=== PATIENT | male | born 1985 | race Caucasian/White ===

== ENCOUNTER 2017-10-03 19:55 | Emergency (ER) | payer OTHER ==
--- NOTE | 2017-10-03 20:10 | PDOC ---
Rapid Medical Evaluation Chief Complaint: Pain Time Seen by Provider: 10/03/17 20:02 Medical Evaluation: Allergies Allergy/AdvReac Type Severity Reaction Status Date / Time No Known Allergies Allergy Verified 10/03/17 20:05 10/03/17 20:08 Pt c/o: generalized abd pain since saturday with burning, nausea and diarrhea starting today, went to urgent care clinic and was given zofran and zantac, no improvement Pt on brief exam: vss Pt ordered for : cbc, comp, lipase, ua, mag Pt to proceed to the ED Discharge Disposition - Diagnosis Abdominal pain - Referrals - Patient Instructions - Post Discharge Activity
[2017-10-03 20:17] VITALS: BP 119/70; PULSE 70; TEMP 98; BMI 26.8
[2017-10-03 20:27] LABS: HEMATOCRIT 48.4 % (35.4-49); HEMOGLOBIN 16.6 GM/dL (11.7-16.9); MCH 32.6 pg (25.7-33.7); MCHC 34.4 g/dl (32.0-35.9); MEAN CELL VOLUME 94.7 fl (80-96); MEAN PLT VOLUME 8.5 fl (7.5-11.1); PLATELET COUNT 216 K/MM3 (134-434); RBC 5.11 M/mm3 (4.00-5.60); RDW 12.9 % (11.9-15.9); WHITE BLOOD COUNT 14.6 K/mm3 (4.0-10.0)
[2017-10-03 20:40] LABS: URINE APPEARANCE CLEAR; URINE BILIRUBIN NEGATIVE (NEGATIVE); URINE BLOOD NEGATIVE (NEGATIVE); URINE COLOR STRAW; URINE GLUCOSE (UA) NEGATIVE (NEGATIVE); URINE KETONE NEGATIVE (NEGATIVE); URINE LEUK ESTERASE NEGATIVE (NEGATIVE); URINE NITRITE NEGATIVE (NEGATIVE); URINE PROTEIN NEGATIVE (NEGATIVE); URINE UROBILINOGEN NEGATIVE mg/dL (0.2-1.0)
[2017-10-03 21:02] LABS: ALBUMIN 3.9 g/dl (3.4-5.0); ANION GAP 5 (8-16); BILIRUBIN,TOTAL 0.4 mg/dL (0.2-1.0); BLOOD UREA NITROGEN 29 mg/dL (7-18); CALCIUM 8.2 mg/dL (8.5-10.1); CHLORIDE 102 mmol/L (98-107); CO2 29 mmol/L (21-32); CREATININE 1.3 mg/dL (0.7-1.3); GLUCOSE,RANDOM 106 mg/dL (74-106); LIPASE 192 U/L (73-393); MAGNESIUM 2.2 mg/dL (1.8-2.4); POTASSIUM 4.1 mmol/L (3.5-5.1); SGOT/AST 21 U/L (15-37); SGPT/ALT 41 U/L (12-78); SODIUM 136 mmol/L (136-145); TOT PROT 7.4 g/dl (6.4-8.2)
[2017-10-03 21:03] LABS: ALK PHOS 76 U/L (45-117)
[2017-10-03 21:45] LABS: PLATELET ESTIMATE ADEQUATE
[2017-10-03] MEDS ORDERED: DICYCLOMINE HCL 20 MG TABLET PO ONE (22:16)
[2017-10-03] MEDS ORDERED: DICYCLOMINE HCL 10 MG CAPSULE ONE (22:20)
--- NOTE | 2017-10-03 22:50 | PDOC ---
History of Present Illness - General Chief Complaint: Pain Stated Complaint: STOMACH PAIN Time Seen by Provider: 10/03/17 20:02 History Source: Patient Exam Limitations: No Limitations - History of Present Illness Initial Comments: 10/03/17 22:44 Patient is a 52-year-old male with history of appendectomy, tonsillectomy, right knee arthroscopic, complaining of diarrhea 4 days. Diarrhea is watery nonbloody associated with nausea, no vomiting and generalized abdominal pain. Describes the abdominal pain as intermittent generalized and in with 10/10 at its maximum and is currently 7/10. Denies any fever, chills. There has been no sick contact or food contact. States he went to urgent care 2 days ago for the symptoms and was given ranitidine and Zofran which has not improved his condition. States he had one diarrhea episode today, but the abdominal pain has been intermittent but was concerned and so presents for evaluation. Denies fever , chills, dysuria, hematochezia. PMD: Dr. Molina PMHX: as above PsocHX: neg cig, EtOH, drugs ALL: NKDA GENERAL/CONSTITUTIONAL: [No fever or chills. No weakness. No weight change.] HEAD, EYES, EARS, NOSE AND THROAT: [No change in vision. No ear pain or discharge. No sore throat.] CARDIOVASCULAR: [No chest pain or shortness of breath.] RESPIRATORY: [No cough, wheezing, or hemoptysis.] GASTROINTESTINAL: [No nausea, vomiting, diarrhea or constipation. No rectal bleeding.] GENITOURINARY: [No dysuria, frequency, or change in urination.] MUSCULOSKELETAL: [No joint or muscle swelling or pain. No neck or back pain.] SKIN AND BREASTS: [No rash or easy bruising.] NEUROLOGIC: [No headache, vertigo, loss of consciousness, or loss of sensation.] PSYCHIATRIC: [No depression or anxiety.] ENDOCRINE: [No increased thirst. No abnormal weight change.] HEMATOLOGIC/LYMPHATIC: [No anemia, easy bleeding, or history of blood clots.] ALLERGIC/IMMUNOLOGIC: [No hives or skin allergy. No latex allergy.] GENERAL: [The patient is awake, alert, and fully oriented, in no acute distress. ] HEAD: [Normal with no signs of trauma.] EYES: [Pupils equal, round and reactive to light, extraocular movements intact, sclera anicteric, conjunctiva clear.] ENT: [Ears normal, nares patent, oropharynx clear without exudates. Moist mucous membranes.] NECK: [Normal range of motion, supple without lymphadenopathy, JVD, or masses.] LUNGS: [Breath sounds equal, clear to auscultation bilaterally. No wheezes, and no crackles.] HEART: [Regular rate and rhythm, normal S1 and S2 without murmur, rub.] ABDOMEN: [Soft, nontender, normoactive bowel sounds. No guarding, no rebound. No masses.] EXTREMITIES: [Normal range of motion, no edema. No clubbing or cyanosis. No cords, erythema, or tenderness.] NEUROLOGICAL: [Cranial nerves II through XII grossly intact. Normal speech, normal gait.] PSYCH: [Normal mood, normal affect.] SKIN: [Warm, Dry, normal turgor, no rashes or lesions noted.] Past History - Past Medical History Allergies/Adverse Reactions: Allergies Allergy/AdvReac Type Severity Reaction Status Date / Time No Known Allergies Allergy Verified 10/03/17 20:05 Home Medications: Ambulatory Orders Dicyclomine HCl [Bentyl] 10 mg PO TID #20 capsule 10/03/17 Asthma: Yes (Until age 17) COPD: No - Surgical History Appendectomy: Yes - Suicide/Smoking/Psychosocial Hx Smoking History: Never smoked Have you smoked in the past 12 months: No Information on smoking cessation initiated: No Hx Alcohol Use: No Drug/Substance Use Hx: No Substance Use Type: None *Physical Exam - Vital Signs Last Vital Signs Temp Pulse Resp BP Pulse Ox 98.0 F 70 18 119/70 96 10/03/17 20:05 10/03/17 20:05 10/03/17 20:05 10/03/17 20:05 10/03/17 20:05 ED Treatment Course - LABORATORY CBC & Chemistry Diagram: 10/03/17 20:20 10/03/17 20:20 - ADDITIONAL ORDERS Additional order review: Laboratory Results 10/03/17 10/03/17 20:25 20:20 Sodium 136 Potassium 4.1 Chloride 102 Carbon Dioxide 29 Anion Gap 5 L BUN 29 H Creatinine 1.3 Creat Clearance w eGFR > 60 Random Glucose 106 Calcium 8.2 L Magnesium 2.2 Total Bilirubin 0.4 AST 21 ALT 41 Alkaline Phosphatase 76 Total Protein 7.4 Albumin 3.9 Lipase 192 Urine Color Straw Urine Appearance Clear Urine pH 5.0 Ur Specific [place] 1.018 Urine Protein Negative Urine Glucose (UA) Negative Urine Ketones Negative Urine Blood Negative Urine Nitrite Negative Urine Bilirubin Negative Urine Urobilinogen Negative Ur Leukocyte Esterase Negative 10/03/17 20:20 RBC 5.11 MCV 94.7 MCHC 34.4 RDW 12.9 MPV 8.5 Neutrophils % No Result Required. Lymphocytes % No Result Required. - Medications Given in the ED: ED Medications Discontinued Medications Generic Name Dose Route Start Last Admin Trade Name Freq PRN Reason Stop Dose Admin Dicyclomine HCl 20 mg 10/03/17 22:16 10/03/17 22:22 Bentyl - PO 10/03/17 22:17 20 mg ONCE ONE Administration Medical Decision Making - Medical Decision Making 10/04/17 22:27 Patient is a 52-year-old male with history of appendectomy, tonsillectomy, right knee arthroscopic, complaining of auditory diarrhea 4 days consistent with gastroenteritis. Labs, Bentyl 20 mg by mouth. Discharge with GI follow-up. Labs reviewed of concern are 28 eosinophils, and an elevated WBC of 14 Case was discussed with Dr. Muñoz who states that patient can follow-up in the office on Saturday I discussed the physical exam findings, ancillary test results and final diagnoses with the patient. I answered all of the patient's questions. The patient was satisfied with the care received and felt comfortable with the discharge plan and treatment plan. The Patient agrees to follow up with the primary care physician within 24-72 hours. *DC/Admit/Observation/Transfer Diagnosis at time of Disposition: Abdominal pain Qualifiers: Abdominal location: generalized Qualified Code(s): R10.84 - Generalized abdominal pain - Discharge Dispostion Disposition: HOME Condition at time of disposition: Stable - Prescriptions Prescriptions: Dicyclomine HCl [Bentyl] 10 mg PO TID #20 capsule - Referrals Referrals: Arya Molina MD [Primary Care Provider] - Sergio Muñoz MD [Staff Physician] - - Patient Instructions Printed Discharge Instructions: DI for Viral Gastroenteritis -- Adult Additional Instructions: Your Discharge Instructions: You must call primary care physician within 24 hours to arrange follow-up. Return to the Emergency Department with any new, persistent or worsening symptoms, for fever, chills, SOB, dizziness or any other concerning changes that may occur. If her symptoms are not improving need to follow up with the field operations farm manager. - Post Discharge Activity
== END 2017-10-03 22:55 | disposition home or self-care (01) ==
LOC: JER 19:55
DX: R10.84 Generalized abdominal pain (principal)
CPT/HCPCS: 36415; 80053; 81003; 83690; 83735; 85025; 99281-25

== ENCOUNTER 2017-11-06 10:55 | Day surgery (SDC) | payer OTHER ==
[2017-11-05 15:08] VITALS: BMI 26.6
[2017-11-06] MEDS ORDERED: PROPOFOL 20 ML ONE ×2 (11:35)
[2017-11-06 12:20] VITALS: TEMP 97.9
--- NOTE | 2017-11-06 12:32 | PROC ---
Endoscopy Procedure Endoscopy procedure completed. Please see scanned procedure report.
[2017-11-06 13:17] VITALS: BP 110/58; PULSE 59
== END 2017-11-06 13:17 | disposition home or self-care (01) ==
LOC: JASU-ENDO 10:55
PROVIDERS: ATTEND Internal Medicine Gastroenterology
PROC: 0DB68ZX Excision of Stomach, Via Natural or Artificial Opening Endoscopic, Diagnostic (ICD-10-PCS; 2017-11-06)
PROC: 0DBK8ZX Excision of Ascending Colon, Via Natural or Artificial Opening Endoscopic, Diagnostic (ICD-10-PCS; 2017-11-06)
PROC: 0DBL8ZX Excision of Transverse Colon, Via Natural or Artificial Opening Endoscopic, Diagnostic (ICD-10-PCS; 2017-11-06)
PROC: 0DBN8ZX Excision of Sigmoid Colon, Via Natural or Artificial Opening Endoscopic, Diagnostic (ICD-10-PCS; 2017-11-06)
PROC: 0DBM8ZX Excision of Descending Colon, Via Natural or Artificial Opening Endoscopic, Diagnostic (ICD-10-PCS; 2017-11-06)
PROC: 0DB98ZX Excision of Duodenum, Via Natural or Artificial Opening Endoscopic, Diagnostic (ICD-10-PCS; 2017-11-06)
PROC: 0DB68ZX Excision of Stomach, Via Natural or Artificial Opening Endoscopic, Diagnostic (ICD-10-PCS; 2017-11-06)
PROC: 0DB98ZX Excision of Duodenum, Via Natural or Artificial Opening Endoscopic, Diagnostic (ICD-10-PCS; principal; 2017-11-06 12:00)
DX: K26.9 Duodenal ulcer, unspecified as acute or chronic, without hemorrhage or perforation (principal)
CPT/HCPCS: 88305-TC; 88342-TC